=== PATIENT | male | born 1960 | race Two or more races ===

== ENCOUNTER 2020-07-06 09:25 | Emergency (ER) | payer OTHER ==
[2020-07-06 09:38] VITALS: BP 150/89; PULSE 85; TEMP 99; BMI 25.3
--- NOTE | 2020-07-06 09:47 | PDOC ---
Attending Attestation - Resident Resident Name: Jah Jasso - ED Attending Attestation I have performed the following: I have examined & evaluated the patient, The case was reviewed & discussed with the resident, I agree w/resident's findings & plan, Exceptions are as noted - HPI HPI: 07/06/20 11:24 59 years old with past medical history significant for hypertension high cholesterol presents to the emergency department with right shoulder pain. 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 Began with moderate discomfort on Friday night to his right shoulder progressively worsening now very severe with difficulty with range of motion Pain is persistent constant unable to range or move shoulder secondary to pain with assistance able to range shoulder neurovascular intact distally no direct trauma to area - Physicial Exam PE: 07/06/20 11:24 Vitals: Triage Vital signs reviewed General Appearance: No acute distress, well nourished well developed, Head: Atraumatic Cardiac: Regular rate and rhythym, no murmurs, no rubs, no gallops, Lungs: Clear to auscultation bilateral, good air movement bilaterally, Abdomen: Soft, non distended, normal bowel sounds, non tender to palpation Extremities:Decreased range of motion to right shoulder secondary to pain reproducible tenderness palpation to the right shoulder. No weakness numbness distally but weakness with extension and flexion at the shoulder. Neurovascular intact distally. Skin: Warm and dry, no rashes or lesions, no rash, no petechiae Neuro: Decreased strength at right shoulder secondary to delma sensation intact to all extremities, gait normal Psych: Normal mood, normal affect - Medical Decision Making 07/06/20 11:25 59 years old with moderate to severe shoulder pain decreased range of motion secondary to pain No acute fracture dislocation noted on x-rays. Likely arthritic changes versus calcific tendinitis given history of repetitive motions at work and progressively worsening pain Case discussed with orthopedist can see patient in his office today Patient to proceed directly to orthopedist office Findings, need for follow-up and strict return instruction discussed with patient. Discharge - Discharge Information Problems reviewed: Yes Clinical Impression/Diagnosis: Left shoulder pain Qualifiers: Chronicity: acute Qualified Code(s): M25.512 - Pain in left shoulder Condition: Good Disposition: HOME - Follow up/Referral Referrals: Davie Barahona MD [Staff Physician] - - Patient Discharge Instructions Patient Printed Discharge Instructions: DI for Calcific Tendonitis of the Shoulder Additional Instructions: You came into the ER with shoulder pain. We did x-rays which showed no obvious acute fracture. Please goto the orthopedist Dr. Barahona right away for evaluation You must return to the Emergency Department with any new complaints, if your symptoms persist and do not improve or if you develop any other new or worsening concerns. As discussed, please call to follow up with your Primary Care physician in 1-2 days to discuss what happened to you in the emergency room, and make sure you are being looked after and taken care of. Your emergency room visit is not complete without this follow up appointment. Please read the attached handouts for further information about your ER visit and what you should do moving forward. Thank you for coming to the [facility]. We hope you feel better soon! Print Language: SETSWANA - Post Discharge Activity
[2020-07-06] MEDS ORDERED: ACETAMINOPHEN 325 MG TABLET (FP) PO ONE (09:53)
[2020-07-06] MEDS ORDERED: ACETAMINOPHEN 500 MG TABLET (FP) ONE (10:01)
--- NOTE | 2020-07-06 10:10 | PDOC ---
History of Present Illness - General Chief Complaint: Pain Stated Complaint: RIGHT SHOULDER PAIN Time Seen by Provider: 07/06/20 09:31 History Source: Patient Exam Limitations: No Limitations - History of Present Illness Initial Comments: Henrique is a 59 yo M w a hx of NIDDM who presents to the [place] [facility] with 2 days of worsening right shoulder, arm, and elbow pain weakness, numbness and tingling. States symptoms are moderate and persistent. When he was going to sleep Friday night he noticed something off in the right shoulder. Upon waking up Friday the right arm had significant weakness and pain with movement of the arm. Today his left elbow was weak and he states his arm is losing strength at a rapid rate so he came in for evaluation. He reports limitation to ranging his arm secondary to pain in the shoulder. Denies fevers, chills, headache, nausea, vomiting, abnormal sensation, back pain, neck pain, hand pain PCP: Mookie Wild PSH: None reported Social Hx: Drinks 6 beers daily. Denies smoking or illicit drug usage Allergies: NKA, NKDA Past History - Medical History Allergies/Adverse Reactions: Allergies Allergy/AdvReac Type Severity Reaction Status Date / Time No Known Allergies Allergy Verified 07/06/20 09:29 Home Medications: Ambulatory Orders Unobtainable 07/06/20 COPD: No Diabetes: Yes (NIDDM) - Psycho-Social/Smoking History Smoking History: Current every day smoker Have you smoked in the past 12 months: Yes Number of Cigarettes Smoked Daily: 3 Information on smoking cessation initiated: Yes - Substance Abuse Hx (Audit-C & DAST Scrn) How often the patient has a drink containing alcohol: 2-3 times / week How often the patient has six or more drinks on one occasion: Never Score: In Men: 4 or > Positive; In Women: 3 or > Positive: 3 Screen Result (Pos requires Nsg. Audit-10AR): Negative In the last yr the pt used illegal drug/Rx for NonMed reason: No Score: Yes response is considered Positive: 0 Screen Result (Positive result requires Nsg. DAST-10): Negative Review of Systems - Review of Systems Able to Perform ROS?: Yes Comments:: CONSTITUTIONAL: Absent: fever, no chills, no fatigue EYES: Absent: visual changes ENT: Absent: ear pain, no sore throat CARDIOVASCULAR: Absent: chest pain, no palpitations RESPIRATORY: Absent: cough, no SOB GI: Absent: abdominal pain, no nausea, no vomiting, no constipation, no diarrhea GENITOURINARY: Absent: dysuria, no frequency, no hematuria MUSKULOSKELETAL: Present: Arthralgia Absent: back pain, no myalgia SKIN: Absent: rash NEURO: Absent: headache *Physical Exam - Vital Signs Last Vital Signs Temp Pulse Resp BP Pulse Ox 99.0 F 85 15 150/89 100 07/06/20 09:26 07/06/20 09:26 07/06/20 09:26 07/06/20 09:26 07/06/20 09:26 - Physical Exam RIGHT ARM: Patient has limited ROM about the right shoulder. Also limited ROM in the right elbow 2/2 pain. Patient cannot Abduct the shoulder on his own. The right arm is warm, has 2+ radial and ulnar pulses, and has 5/5 sensation compared to the left. 5/5 strength in hand, fingers, and wrist flexion and extension. GENERAL: Well-appearing, well-nourished. Mild distress. HEENT: Normocephalic, atraumatic. PERRL, EOM intact. CARDIOVASCULAR: Normal S1, S2. Regular rate and rhythm. PULMONARY: No evidence of respiratory distress. Lungs clear to auscultation bilaterally. No wheezing, rales or rhonchi. ABDOMEN: Soft, non-distended, non-tender. EXTREMITIES: Normal ROM in other 3 extremities. No gross deformities. SKIN: Warm, dry. No rash NEUROLOGICAL: No focal neurological deficits. ED Treatment Course - RADIOLOGY Radiology Studies Ordered: Category Date Time Status ELBOW-RIGHT [RAD] Stat Radiology 07/06/20 09:52 Ordered HUMERUS-RIGHT [RAD] Stat Radiology 07/06/20 09:52 Ordered SHOULDER W/TRANS-RIGHT [RAD] Stat Radiology 07/06/20 09:52 Ordered SHOULDER-RIGHT [RAD] Stat Radiology 07/06/20 09:52 Ordered - Medications Given in the ED: ED Medications Discontinued Medications Generic Name Dose Route Start Last Admin Trade Name Freq PRN Reason Stop Dose Admin Acetaminophen 1,000 mg 07/06/20 09:53 07/06/20 10:02 Tylenol - PO 07/06/20 09:54 1,000 mg ONCE ONE Administration Medical Decision Making - Medical Decision Making Henrique is a 59 yo M w a hx of NIDDM who presents to the [place] ER with 2 days of worsening right shoulder, arm, and elbow pain weakness, numbness and tingling. States symptoms are moderate and persistent. When he was going to sleep Friday night he noticed something off in the right shoulder. Upon waking up Friday the right arm had significant weakness and pain with movement of the arm. Today his left elbow was weak and he states his arm is losing strength at a rapid rate so he came in for evaluation. He reports limitation to ranging his arm secondary to pain in the shoulder. Vital Signs Temp Pulse Resp BP Pulse Ox 99.0 F 85 15 150/89 100 07/06/20 09:26 07/06/20 09:26 07/06/20 09:07/06/20 09:07/06/20 09:26 DDx IBNLT: Shoulder dislocation, shoudler fx, humerus fx, elbow injury Plan: XR, analgesia, re-assess XR: Unremarkable Re-assessment: this might be Calcific tendinits as stove in patient's workplace recently elevated The patient appears clinically sober, has no evidence of clinical intoxication, is A&O x4, has no sustained nystagmus, and appears to be capable and have capacity to make reasonable decisions. The patient states they are currently in the emergency department, knows who the president is, states the correct time, correct day, and correct month. The patient is ambulatory in ER and has walked around the nursing station multiple times with a straight and steady gait, and is not ataxic. Tolerating PO well, ate a sandwich and drank juice. Denies having any SI or HI. Patient states will not be driving home. Ortho consult: Spoke with Dr. Barahona who said he is in the office and we can send over patient to office right away and he will evaluate I discussed the physical exam findings, ancillary test results and final diagnoses with the patient. I answered all of the patient's questions. The patient was satisfied with the care received and felt comfortable with the discharge plan and treatment plan. The patient will call their primary care physician within 24 hours to arrange follow-up and will return to the Emergency Department with any new, persistent or worsening symptoms. Dispo: Home with ortho FU today Please note, this clinical encounter is taking place during a [facility] emergency attributable to the novel [place] Virus pandemic. The [place] of the Department of Health and Human Services has declared, pursuant to the Public Health Service Act 319F-3 (42 U.S.C. 247d-6d), that a covered persons activities related to medical countermeasures against COVID-19 will be immune from liability under Federal and State law. Discharge - Discharge Information Problems reviewed: Yes Clinical Impression/Diagnosis: Left shoulder pain Qualifiers: Chronicity: acute Qualified Code(s): M25.512 - Pain in left shoulder Condition: Good Disposition: HOME - Admission No - Follow up/Referral Referrals: Davie Barahona MD [Staff Physician] - - Patient Discharge Instructions Patient Printed Discharge Instructions: DI for Calcific Tendonitis of the Shoulder Additional Instructions: You came into the ER with shoulder pain. We did x-rays which showed no obvious acute fracture. Please goto the orthopedist Dr. Barahona right away for evaluation You must return to the Emergency Department with any new complaints, if your symptoms persist and do not improve or if you develop any other new or worsening concerns. As discussed, please call to follow up with your Primary Care physician in 1-2 days to discuss what happened to you in the emergency room, and make sure you are being looked after and taken care of. Your emergency room visit is not complete without this follow up appointment. Please read the attached handouts for further information about your ER visit and what you should do moving forward. Thank you for coming to the [place] ER. We hope you feel better soon! Print Language: MALIAN - Post Discharge Activity Work/Back to School Note: Back to Work
[2020-07-06] MEDS ORDERED: morphine CARPU-JECT 4 MG/1 ML DISP.SYRIN IM ONE (10:59)
== END 2020-07-06 11:22 | disposition home or self-care (01) ==
LOC: FER 09:25
DX: M25.512 Pain in left shoulder (principal)
CPT/HCPCS: 73030-TC-RT-FY; 73060-TC-RT-FY; 73070-TC-RT-FY; 99285-25

== ENCOUNTER 2020-08-07 09:46 | Emergency (ER) | payer OTHER ==
[2020-08-07] MEDS ORDERED: MECLIZINE HCL 25 MG TABLET (FP) PO ONE (09:58)
--- NOTE | 2020-08-07 09:58 | PDOC ---
History of Present Illness - General Chief Complaint: Lightheaded Stated Complaint: DIZZINESS Time Seen by Provider: 08/07/20 09:55 History Source: Patient Exam Limitations: Language Barrier - History of Present Illness Initial Comments: 08/07/20 10:16 59y M with PMH of HTN, HLD, NIDDM, alcohol use presenting to the ER today for dizziness since this AM. Pt states that for the past two weeks he has been having episodes of dizziness after he takes his medication which self resolve but this AM the sensation was stronger and has been lasting longer. Dizziness is worsened when he changes head positions and he feels as if he is going to fall off to either side when he walks. He has not sought out medical attention for this. Endorses a sensation of reflux as well. Denies headache, LOC, head injury, neck injury, neck pain, tinnitus, weakness, numbness/tingling, recent illnes ses, congestion, chest pain, SOB, cough, abdominal pain, n/v/d, dysuria, fever/chills, back pain. Pt endorses drinking daily with 8 beers last night. PMD: Roth PMH: see hpi PSH: none Meds: Allergies: nkda Social: drinks 6-8 beers daily. 08/07/20 11:46 Past History - Medical History Allergies/Adverse Reactions: Allergies Allergy/AdvReac Type Severity Reaction Status Date / Time No Known Allergies Allergy Verified 08/07/20 11:14 Home Medications: Ambulatory Orders Aspirin [Aspirin EC] 81 mg PO DAILY 08/07/20 Icosapent Ethyl [Vascepa] 1 gm PO DAILY 08/07/20 Lisinopril [Zestril] 40 mg PO DAILY 08/07/20 Meclizine HCl [Antivert -] 25 mg PO TID PRN #21 tablet 08/07/20 Metformin HCl [Glucophage] 500 mg PO BID 08/07/20 COPD: No Diabetes: Yes (NIDDM) - Psycho-Social/Smoking History Smoking History: Never smoked Have you smoked in the past 12 months: Yes Number of Cigarettes Smoked Daily: 3 - Substance Abuse Hx (Audit-C & DAST Scrn) How often the patient has a drink containing alcohol: 4 0r more times/wk Number of drinks the patient has on a typical day: 5 or 6 How often the patient has six or more drinks on one occasion: Daily or almost daily Score: In Men: 4 or > Positive; In Women: 3 or > Positive: 10 Screen Result (Pos requires Nsg. Audit-10AR): Positive In the last yr the pt used illegal drug/Rx for NonMed reason: No Score: Yes response is considered Positive: 0 Screen Result (Positive result requires Nsg. DAST-10): Negative Review of Systems - Review of Systems Constitutional: No: Chills, Diaphoresis, Fever, Weakness HEENTM: No: Eye Pain, Blurred Vision, Double Vision, Ear Pain, Tinnitus, Hearing Loss Respiratory: No: Symptoms reported Cardiac (ROS): Yes: See HPI ABD/GI: No: Symptoms Reported : No: Symptoms Reported Musculoskeletal: No: Symptoms Reported Integumentary: No: Symptoms Reported Neurological: Yes: See HPI, Unsteady Gait, Dizziness. No: Headache, Numbness, Weakness *Physical Exam - Vital Signs Last Vital Signs Temp Pulse Resp BP Pulse Ox 98.4 F 80 15 140/79 99 08/07/20 09:48 08/07/20 09:48 08/07/20 09:48 08/07/20 09:48 08/07/20 09:48 - Physical Exam General Appearance: Yes: Nourished, Appropriately Dressed. No: Apparent Distress, Intoxicated HEENT: positive: EOMI, FELISHA, Hearing Grossly Normal Neck: positive: Trachea midline, Supple. negative: Tender, Carotid bruit, Decreased range of motion, Lymphadenopathy (R), Lymphadenopathy (L), Tender lateral, Tender midline Respiratory/Chest: positive: Lungs Clear, Normal Breath Sounds. negative: Crackles, Rales, Rhonchi, Stridor, Wheezing Cardiovascular: positive: Regular Rhythm, Regular Rate, S1, S2. negative: Edema, JVD, Murmur Vascular Pulses: Carotid (R): 2+, Carotid (L): 2+ Gastrointestinal/Abdominal: positive: Normal Bowel Sounds, Soft. negative: Tender Musculoskeletal: negative: CVA Tenderness, Decreased Range of Motion, Vertebral Tenderness Extremity: positive: Normal Capillary Refill. negative: Pedal Edema, Swelling, Calf Tenderness Integumentary: positive: Normal Color, Dry, Warm Neurologic: positive: stereo equipment salesperson II-XII NML intact, Fully Oriented, Alert, Normal Mood /Affect, Normal Response, Motor Strength 5/5, Finger to Nose, Other (normal heel-earl, horizontal nystagmus with 2 beats, no rotary or vertical nystagmus, negative romberg.). negative: Facial Droop, Numbness, Sensory Deficit, Disoriented ED Treatment Course - LABORATORY CBC & Chemistry Diagram: 08/07/20 10:55 08/07/20 10:55 - RADIOLOGY Radiology Studies Ordered: Category Date Time Status CXRPORT [CHEST X-RAY PORTABLE*] [RAD] Stat Radiology 08/07/20 09:56 Ordered Medical Decision Making - Medical Decision Making 08/07/20 10:25 59y m with pmh of htn, hld, niddm, alcohol use presenting to the ER with 2 weeks of vertigo acutely worsened this AM. +substernal chest discomfort. -vitals wnl -PE: no neurological deficits, normal gait, no dysdiadochokinesia, normal heel- earl, negative rombergs. ddx includes peripheral v. central vertigo, wernicke's, mi, cva/tia, electrolyte abnormality, chronic alcohol use -basic labs including cardiac enzymes -cxr -ct head. -meclizine for dizziness -pepcid for reflux cannot rule out cerebellar stroke, given medical history pt is at increased risk, will benefit from MRI. 08/07/20 10:50 ekg: nsr at 77bpm. normal axis, normal intervals. no dougie or depressions, no twi. fingerstick 115 08/07/20 11:47 labs wnl, CT head negative for infarct or bleed. pt still feels ataxic when walking. will admit to r/o stroke. mri ordered. will place consult to neurology. will obtain mri, approval by Dr. Woodson and Dr. Jiménez (radiology). 08/07/20 12:21 08/07/20 14:19 MRI read as mild periventricular chronic microvascular ischemic changes, no acute ischemia. otherwise normal mri. discussed results with pt and daughter, now at bedside. pt ambulatory, dizziness is resolving. advised to f/u with pmd this week and referral to neurology provided. rx for meclizine sent. return precautions provided. pt does not have acute infarct, normal labs, normal ekg. hemodynamically stable, will dc home. also provided referral to detox. 08/07/20 14:24 Discharge - Discharge Information Problems reviewed: Yes Clinical Impression/Diagnosis: Dizziness Condition: Good Disposition: HOME - Admission No - Additional Discharge Information Prescriptions: Meclizine HCl [Antivert -] 25 mg PO TID PRN #21 tablet PRN Reason: Vertigo - Follow up/Referral Referrals: Axel Roth [Primary Care Provider] - Davie Mcleod MD [Staff Physician] - Trevon Woodson MD [Staff Physician] - - Patient Discharge Instructions Patient Printed Discharge Instructions: Vertigo, DI for Dizziness-Nonvertigo Additional Instructions: You were seen in the ER today for dizziness. This could be from a vitamin deficiency due to excessive alcohol use or a peripheral vertigo. The MRI, CT scan, blood tests and ekg are normal. I highly recommend that you see your doctor this week regarding your symptoms. You should also see a neurologist, information is provided below. Continue taking your medication daily. A prescription for meclizine (helps with dizziness) was sent to [facility] on [facility]. Take as directed. If you are interested in detox, you can go to [facility] on [address] [place] [address]. Return to the ER if you have worsening dizziness, pass out, have headaches, stroke symptoms or if any new or concerning symptom develops. Thank you Hoy lo vieron en la magalys de emergencias por mareos. [place] podra deberse a shala deficiencia de vitaminas debido al consumo excesivo de alcohol o un vrtigo perifrico. La resonancia magntica, la tomografa computarizada, los anlisis de mesfin y el electrocardiograma son normales. Le recomiendo que consulte a canseco mdico esta semana con respecto a rachel sntomas. Claire debe consultar a un neurlogo; la informacin se proporciona a continuacin. Contine tomando canseco medicacin a diario. Se envi shala receta de meclizina (ayuda con los mareos) a [facility] en [place]. Kayleigh segn las indicaciones. Si est interesado en la desintoxicacin, puede ir a [facility] [address] [place] [address]. Regrese a la magalys de emergencias si tiene un empeoramiento de los mareos, se desmaya, tiene mackenzie de tosha, sntomas de accidente cerebrovascular o si se desarrolla algn sntoma nuevo o preocupante. Kristopher Print Language: [place] - Post Discharge Activity
[2020-08-07 10:02] VITALS: TEMP 98.4; BMI 25.2
[2020-08-07] MEDS ORDERED: MECLIZINE HCL 25 MG TABLET (FP) ONE (10:02)
[2020-08-07] MEDS ORDERED: FAMOTIDINE 20 MG/50 ML IVPB 20 MG/50 ML MG IVPB ONE ×2 (10:17→10:43)
--- NOTE | 2020-08-07 10:20 | PDOC ---
Attending Attestation - Resident Resident Name: Kasey Sheets - ED Attending Attestation I have performed the following: I have examined & evaluated the patient, The case was reviewed & discussed with the resident, I agree w/resident's findings & plan, Exceptions are as noted - HPI HPI: 08/07/20 10:15 59 yo M h/o HTN, HLD, DM p/w dizziness described as room spinning each morning after taking his medications x2 weeks but today was worse and persisted so came to the ED. Denies any recent changes in medications. No n/v. Denies CP or SOB. Denies any falls or head trauma. Also reports daily drinking, ~ 8 beers. Denies any changes in vision. - Physicial Exam PE: 08/07/20 10:17 General: well appearing, NAD HEENT: EOMI, NCAT Neuro: Aox3, speech fluent, face symmetric, finger to nose intact and symmetric b/l, no drift, ambulatory with steady gait - Medical Decision Making 08/07/20 10:18 59 yo M with dizziness, unremarkable neuro exam and patient reports symptoms started shortly after 6AM so outside a TPA window. Possible CVA vs. TIA vs. vertigo vs. medication side effect vs. lower suspicion for wernicke as patient reports eating regular meals and no nystagmus on exam. Plan: -labs -cxr -CT head -EKG -meclizine -reassess This clinical encounter is taking place during a federal and state health care emergency attributable to the novel [place] Virus pandemic. The [place] of the Department of Health and Human Services has declared, pursuant to the Public Health Service Act 319F-3 (42 U.S.C. 247d-6d), that a covered persons activities related to medical countermeasures against COVID-19 will be immune from liability under Federal and State law. 08/07/20 14:25 CT head and MRI negative. Patient with improvement in symptoms. WIll d/c with return precautions, recommend PMD f/u Discharge - Discharge Information Problems reviewed: Yes Clinical Impression/Diagnosis: Dizziness Condition: Good Disposition: HOME - Additional Discharge Information Prescriptions: Meclizine HCl [Antivert -] 25 mg PO TID PRN #21 tablet PRN Reason: Vertigo - Follow up/Referral Referrals: Trevon Woodson MD [Staff Physician] - Davie Mcleod MD [Staff Physician] - Axel Roth [Primary Care Provider] - Lanre Bey MD [Staff Physician] - - Patient Discharge Instructions Patient Printed Discharge Instructions: Vertigo, DI for Dizziness-Nonvertigo Additional Instructions: You were seen in the ER today for dizziness. This could be from a vitamin deficiency due to excessive alcohol use or a peripheral vertigo. The MRI, CT scan, blood tests and ekg are normal. I highly recommend that you see your doctor this week regarding your symptoms. You should also see a neurologist, information is provided below. Continue taking your medication daily. A prescription for meclizine (helps with dizziness) was sent to [facility] on [facility]. Take as directed. If you are interested in detox, you can go to [facility] on [facility] [id number]. Return to the ER if you have worsening dizziness, pass out, have headaches, stroke symptoms or if any new or concerning symptom develops. Thank you Hoy lo vieron en la magalys de emergencias por mareos. [place] podra deberse a shala deficiencia de vitaminas debido al consumo excesivo de alcohol o un vrtigo perifrico. La resonancia magntica, la tomografa computarizada, los anlisis de mesfin y el electrocardiograma son normales. Le recomiendo que consulte a canseco mdico esta semana con respecto a rachel sntomas. Tambin debe consultar a un neurlogo; la informacin se proporciona a continuacin. Contine tomando canseco medicacin a diario. Se envi shala receta de meclizina (ayuda con los mareos) a [facility] en [facility]. Kayleigh segn las indicaciones. Si est interesado en la desintoxicacin, puede ir a [facility] en [facility] [id number]. Regrese a la magalys de emergencias si tiene un empeoramiento de los mareos, se desmaya, tiene mackenzie de tosha, sntomas de accidente cerebrovascular o si se desarrolla algn sntoma nuevo o preocupante. Kristopher Print Language: UPPER SORBIAN - Post Discharge Activity
[2020-08-07 11:17] LABS: BASO % 0.8 % (0-2.0); EOS % 1.5 % (0-4.5); HEMATOCRIT 45.9 % (35.4-49); HEMOGLOBIN 15.6 GM/dl (11.7-16.9); MCH 32.1 pg (25.7-33.7); MCHC 33.9 g/dl (32.0-35.9); MEAN CELL VOLUME 94.7 fl (80-96); MEAN PLT VOLUME 8.1 fl (7.5-11.1); MONO % 6.3 % (3.8-10.2); NEUT % 66.4 % (42.8-82.8); PLATELET COUNT 198 K/MM3 (134-434); RBC 4.85 M/mm3 (4.00-5.60); RDW 13.1 % (11.9-15.9); WHITE BLOOD COUNT 5.6 K/mm3 (4.0-10.8)
[2020-08-07 11:35] LABS: ACTIVATED PTT 26.8 SECONDS (25.2-36.5); ALBUMIN 4.3 g/dl (3.4-5.0); BILIRUBIN,TOTAL 0.9 mg/dl (0.2-1); CALCIUM 9.3 mg/dl (8.5-10); CREATININE 0.7 mg/dl (0.55-1.3); POTASSIUM 4.1 mmol/L (3.5-5.1); TOT PROT 7.5 g/dl (6.4-8.2)
[2020-08-07 11:41] LABS: INR 1.04 (0.82-1.09); PROTHROMBIN TIME (PATIENT) 11.6 SEC (10.2-13.0)
[2020-08-07 13:47] VITALS: BP 112/66; PULSE 72
--- NOTE | 2020-08-07 16:33 | CON.NEURO ---
Consult - Alcohol/Substance Use Hx Alcohol Use: No - Smoking History Smoking history: Never smoked Have you smoked in the past 12 months: Yes Aproximately how many cigarettes per day: 3 Home Medications - Allergies Allergies/Adverse Reactions: Allergies Allergy/AdvReac Type Severity Reaction Status Date / Time No Known Allergies Allergy Verified 08/07/20 11:14 - Home Medications Home Medications: Ambulatory Orders Aspirin [Aspirin EC] 81 mg PO DAILY 08/07/20 Icosapent Ethyl [Vascepa] 1 gm PO DAILY 08/07/20 Lisinopril [Zestril] 40 mg PO DAILY 08/07/20 Meclizine HCl [Antivert -] 25 mg PO TID PRN #21 tablet 08/07/20 Metformin HCl [Glucophage] 500 mg PO BID 08/07/20 Physical Exam-Neuro Vital Signs: Vital Signs Temperature 98.4 F 08/07/20 09:48 Pulse Rate 72 08/07/20 13:45 Respiratory Rate 15 08/07/20 13:45 Blood Pressure 112/66 08/07/20 13:45 O2 Sat by Pulse Oximetry (%) 98 08/07/20 13:45 Labs: CBC, BMP 08/07/20 10:55 08/07/20 10:55 INR, PTT INR 1.04 (0.82-1.09) 08/07/20 10:55 Assessment/Plan cc Dizziness for two weeks HPI 59 year old male history of htn, hld, dm, alcohol abuse. He came for dizziness since am, it has been happening everyday for past two weeks, but lasting long today. He describes it as lightheadedness and spinnings ensation. His ct head and mri ofbrain is normal. Patient has been taking meclizine and it helps He denies any focal neurological symptoms including dysphagia dysrthria or diplopia PMH ABOVE PSH: none Social: drinks 6-8 beers daily. Allergies/Adverse Reactions: Allergies Allergy/AdvReac Type Severity Reaction Status Date / Time No Known Allergies Allergy Verified 08/07/20 11:14 Home Medications: Ambulatory Orders Aspirin [Aspirin EC] 81 mg PO DAILY 08/07/20 Icosapent Ethyl [Vascepa] 1 gm PO DAILY 08/07/20 Lisinopril [Zestril] 40 mg PO DAILY 08/07/20 Meclizine HCl [Antivert -] 25 mg PO TID PRN #21 tablet 08/07/20 Metformin HCl [Glucophage] 500 mg PO BID 08/07/20 ROS,FH, SH reviewed in chart NEUROLOGICAL EXAMINATION Alert oriented x 3, neck is supple vss eomi, pupils reactive no face asymmetry moving all ext sensation is normal ct head was normal and mri is unremarkable Assessment/Plan 59 year old male history of htn, hld, dm, alcohol abuse. came with dizziness everyday, seems to be multifactorial( vestibular dysfunction, alcohol abuse, and diabetes) Plan - no evidence of stroke - vestibular rehab - continue meclizine prn - follow up outpatient - cessation of alcohol and tight control fo DM Thanking you so much Trevon Woodson MD
--- NOTE | 2020-08-08 10:52 | EKG ---
Test Reason : Blood Pressure : / mmHG Vent. Rate : 077 BPM Atrial Rate : 077 BPM P-R Int : 170 ms QRS Dur : 080 ms QT Int : 386 ms P-R-T Axes : 051 -04 036 degrees QTc Int : 436 ms NORMAL SINUS RHYTHM NORMAL ECG WHEN COMPARED WITH ECG OF 22-APR-2011 15:18, NO SIGNIFICANT CHANGE WAS FOUND Confirmed by Richard Malone MD ([id number]) on 08/08/2020 10:51:52 AM Referred By: Confirmed By:Richard Malone MD
== END 2020-08-07 14:31 | disposition home or self-care (01) ==
LOC: SUPCPDRO 09:46 → FER 09:46
PROC: 3E033GC Introduction of Other Therapeutic Substance into Peripheral Vein, Percutaneous Approach (ICD-10-PCS; principal; 2020-08-07)
DX: R42 Dizziness and giddiness (principal)
CPT/HCPCS: 36415; 70450-TC; 70551-TC; 71045-TC-FY; 80053; 82962; 83690; 84484; 85025; 85610; 85730; 93005; 99285-25; U0003

== ENCOUNTER 2021-02-06 11:02 | Emergency (ER) | payer OTHER ==
[2021-02-06 11:17] VITALS: TEMP 99.1; BMI 26.9
[2021-02-06 11:53] LABS: BASO % 1.1 % (0-2.0); EOS % 2.8 % (0-4.5); HEMATOCRIT 44.6 % (35.4-49); MCH 31.2 pg (25.7-33.7); MCHC 33.7 g/dl (32.0-35.9); MEAN CELL VOLUME 92.6 fl (80-96); MEAN PLT VOLUME 8.5 fl (7.5-11.1); MONO % 7.4 % (3.8-10.2); NEUT % 66.7 % (42.8-82.8); PLATELET COUNT 209 K/MM3 (134-434); RBC 4.82 M/mm3 (4.00-5.60); RDW 13.4 % (11.9-15.9); WHITE BLOOD COUNT 5.4 K/mm3 (4.0-10.8)
[2021-02-06] MEDS ORDERED: MAG HYDROX/AL HYDROX/SIMETH 30 ML UNIT-DOSE CUP PO ONE (11:55)
[2021-02-06] MEDS ORDERED: FAMOTIDINE 20 MG/50 ML IVPB 20 MG/50 ML MG IVPB ONE ×2 (11:55→12:00)
[2021-02-06] MEDS ORDERED: MAG HYDROX/AL HYDROX/SIMETH 30 ML UNIT-DOSE CUP ONE (12:00)
[2021-02-06] MEDS ORDERED: SODIUM CHLORIDE 1,000 ML IV SCH (12:00)
[2021-02-06 12:20] LABS: ALBUMIN 3.9 g/dl (3.4-5.0); BILIRUBIN,TOTAL 0.6 mg/dl (0.2-1); CALCIUM 8.7 mg/dl (8.5-10); CREATININE 0.8 mg/dl (0.55-1.3); POTASSIUM 4.1 mmol/L (3.5-5.1); TOT PROT 7.1 g/dl (6.4-8.2)
[2021-02-06 16:11] VITALS: BP 142/92; PULSE 78
== END 2021-02-06 16:12 | disposition home or self-care (01) ==
LOC: FER 11:02
PROC: 3E033GC Introduction of Other Therapeutic Substance into Peripheral Vein, Percutaneous Approach (ICD-10-PCS; principal; 2021-02-06)
DX: R07.89 Other chest pain (principal)
CPT/HCPCS: 36415; 71045-TC-FY; 80053; 84484; 85025; 93005; 99285-25

== ENCOUNTER 2022-03-17 19:55 | Emergency (ER) | payer OTHER ==
[2022-03-17 20:14] VITALS: TEMP 98.1; BMI 26.8
[2022-03-17] MEDS ORDERED: METHOCARBAMOL 500 MG TABLET PO ONE (22:31)
[2022-03-17] MEDS ORDERED: KETOROLAC TROMETHAMINE 30 MG/1 ML VIAL IM ONE (22:31)
[2022-03-17] MEDS ORDERED: KETOROLAC TROMETHAMINE 30 MG/1 ML VIAL ONE (22:32)
[2022-03-17] MEDS ORDERED: METHOCARBAMOL 500 MG TABLET ONE (22:32)
[2022-03-17 22:50] VITALS: BP 141/81; PULSE 81
== END 2022-03-17 22:51 | disposition home or self-care (01) ==
LOC: JER 19:55 → JERFT 19:55
PROC: 3E023GC Introduction of Other Therapeutic Substance into Muscle, Percutaneous Approach (ICD-10-PCS; principal; 2022-03-17)
DX: S49.92XA Unspecified injury of left shoulder and upper arm, initial encounter (principal); W01.0XXA Fall on same level from slipping, tripping and stumbling without subsequent striking against object, initial encounter
CPT/HCPCS: 73030-TC-LT-FY; 99284-25

== ENCOUNTER 2022-04-12 19:52 | Emergency (ER) | payer OTHER ==
[2022-04-12 20:04] VITALS: BP 135/85; PULSE 76; TEMP 98; BMI 27.2
[2022-04-12] MEDS ORDERED: SODIUM CHLORIDE 0.9% 500 ML INFUS.BAG IV ONE (20:20)
[2022-04-12 20:46] LABS: BASO % 0.6 % (0-2.0); EOS % 1.8 % (0-4.5); HEMATOCRIT 43.4 % (35.4-49); LYMPH % 27.8 % (8-40); MCH 30.9 pg (25.7-33.7); MCHC 34.6 g/dl (32.0-35.9); MEAN CELL VOLUME 89.3 fl (80-96); MEAN PLT VOLUME 9.2 fl (7.5-11.1); NEUT % 60.8 % (42.8-82.8); RBC 4.86 M/mm3 (4.00-5.60); RDW 13.7 % (11.9-15.9); WHITE BLOOD COUNT 5.4 K/mm3 (4.0-10.0)
[2022-04-12 20:47] LABS: VENOUS BASE EXCESS 0.2 mmol/L (-2-2); VENOUS O2 SATURATION 92.9 % (70-80); VENOUS PCO2 38.8 mmHg (38-52); VENOUS PH 7.418 (7.310-7.410)
[2022-04-12 21:09] LABS: ALBUMIN 3.9 g/dl (3.4-5.0); CALCIUM 9.3 mg/dL (8.5-10.1)
[2022-04-12 21:10] LABS: BLOOD UREA NITROGEN 16.1 mg/dL (7-18)
[2022-04-12 21:13] LABS: CREATININE 0.7 mg/dL (0.55-1.3)
[2022-04-12 21:14] LABS: BILIRUBIN,TOTAL 0.9 mg/dL (0.2-1); TOT PROT 7.6 g/dl (6.4-8.2)
[2022-04-12 21:21] LABS: PLATELET COUNT 212 10^3/uL (134-434)
== END 2022-04-12 21:37 | disposition home or self-care (01) ==
LOC: JER 19:52
DX: E11.65 Type 2 diabetes mellitus with hyperglycemia (principal)
CPT/HCPCS: 36415; 80053; 82010; 82803; 82962; 85025; 99284-25

== ENCOUNTER 2023-05-19 13:00 | Emergency (ER) | payer OTHER ==
[2023-05-19 13:12] VITALS: BP 118/75; PULSE 72; RESP 18; TEMP 97; BMI 25.9
[2023-05-19] MEDS ORDERED: IBUPROFEN 600 MG TABLET (FP) PO ONE ×2 (15:52→16:31)
== END 2023-05-19 17:38 | disposition home or self-care (01) ==
LOC: JER 13:00 → JERFT 13:00
DX: M25.561 Pain in right knee (principal); M71.21 Synovial cyst of popliteal space [Baker], right knee
CPT/HCPCS: 73562-TC-RT-FY; 93971-TC; 99284-25